=== PATIENT | female | born 1990 | race Two or more races ===

== ENCOUNTER → 2019-02-19 | Outpatient (CLI) | payer SELFPAY ==
--- NOTE | 2019-02-19 16:48 | RADIOLOGY REPORT (SQ) ---
EXAM DESCRIPTION: U/S [id number] TRNABD 1GES W/ODOP COMPLETED DATE/TIME: 02/19/2019 2:21 pm REASON FOR STUDY: ENCTR FOR SUPERVISION OF OTHER NORMAL , 1ST TRIMESTER (Z34.81) Z34.81 EN COUNTER FOR SUPRVSN OF NORMAL , FIRST TRIM COMPARISON: None. TECHNIQUE: Transabdominal static and realtime grayscale images acquired of the pelvis. Additional se lected spectral and color Doppler images recorded. All images stored on PACs. CG: Not available. CLINICAL DATES: 10 weeks 1 day LIMITATIONS: None. FINDINGS: FETUS: Single Living intrauterine . ULTRASOUND EGA: 11 weeks 1 day ULTRASOUND LAVERN: 09/09/2019 EFW: Not applicable less than 20 weeks. CRL: 4.3 cm. FHR: 168 beats per minute. SURVEY: No visualized anomalies. AMNIOTIC FLUID: Adequate amount. PLACENTA: Not yet developed due to early gestation. SUBCHORIONIC BLEED: Yes. SIZE OF BLEED: 1.8 cm. UTERUS: No masses. No anomalies. CERVICAL LENGTH: 3.2 cm. Closed. RIGHT ADNEXA: Normal ovary with normal vascular flow. No adnexal free fluid. No adnexal masses. LEFT ADNEXA: Normal ovary with normal vascular flow. No adnexal free fluid. No adnexal masses. FREE FLUID: None. OTHER: No other significant finding. IMPRESSION: LIVING INTRAUTERINE . EGA 11 weeks 1 day. Small subchronic hemorrhage. Trimester of : First trimester - 0 to 13 weeks. TECHNICAL DOCUMENTATION: JOB ID: [id number] [employer]- All Rights Reserved Reading location - IP/workstation name: [email or web address]
== END ==
LOC: RAD 13:28
PROVIDERS: ATTEND Nurse Practitioner Family
DX: Z34.81 Encounter for supervision of other normal pregnancy, first trimester (principal)
CPT/HCPCS: 76801

== ENCOUNTER 2019-04-10 14:02 | Emergency (ER) | payer MEDICAID ==
[2019-04-10] MEDS ORDERED: ACETAMINOPHEN 325 MG TABLET PO ONE (14:51)
--- NOTE | 2019-04-10 14:52 | ER Document Report ---
ED Medical Screen (RME) - General Mode of Arrival: Ambulatory Information source: Patient TRAVEL OUTSIDE OF THE U.S[place] IN LAST 30 DAYS: Yes - [place] <WARREN DELGADO - Last Filed: 04/10/19 14:51> <MARICHUY OJEDA P - Last Filed: 04/10/19 18:33> - General Chief Complaint: Abdominal Pain Stated Complaint: COUGH Time Seen by Provider: 04/10/19 14:45 Primary Care Provider: BRET BHATIA ARNP [Primary Care Provider] - Follow up as needed Notes: Patient presents with cough for the past 3 days with sore throat. Patient reports fever yesterday. Patient is currently 16 weeks and complains of lower abdominal pain that is worse with coughing. Patient denies any vomiting or diarrhea. Patient denies any urinary symptoms. I have greeted and performed a rapid initial assessment of this patient. A comprehensive ED assessment and evaluation of the patient, analysis of test results and completion of the medical decision making process will be conducted by additional ED providers. (WARREN DELGADO) - Related Data Allergies/Adverse Reactions: No Known Allergies Allergy (Verified 04/10/19 14:45) Review of Systems - Review of Systems Constitutional: No symptoms reported EENT: No symptoms reported Cardiovascular: No symptoms reported Respiratory: See HPI, Cough Gastrointestinal: Abdominal pain Genitourinary: No symptoms reported Female Genitourinary: No symptoms reported Musculoskeletal: No symptoms reported Skin: No symptoms reported Hematologic/Lymphatic: No symptoms reported Neurological/Psychological: No symptoms reported <MARICHUY OJEDA P - Last Filed: 04/10/19 18:33> Physical Exam - Respiratory Respiratory status: No respiratory distress Breath sounds: Nonproductive cough - Abdominal Inspection: Gravid female Tenderness: Tender - lower pelvic <WARREN DELGADO - Last Filed: 04/10/19 14:51> - Vital signs Interpretation: Normal - General General appearance: Appears well, Alert - HEENT Head: Normocephalic, Atraumatic Eyes: Normal Pupils: PERRL - Respiratory Respiratory status: No respiratory distress Chest status: Nontender Breath sounds: Normal Chest palpation: Normal - Cardiovascular Rhythm: Regular Heart sounds: Normal auscultation Murmur: No - Abdominal Inspection: Normal Distension: No distension Bowel sounds: Normal Tenderness: Nontender Organomegaly: No organomegaly - Back Back: Normal, Nontender - Extremities General upper extremity: Normal inspection, Nontender, Normal color, Normal ROM, Normal temperature General lower extremity: Normal inspection, Nontender, Normal color, Normal ROM, Normal temperature, Normal weight bearing. No: Carin's sign - Neurological Neuro grossly intact: Yes Cognition: Normal Orientation: AAOx4 Mellissa Coma Scale Eye Opening: Spontaneous [place] Coma Scale Verbal: Oriented [place] Coma Scale Motor: Obeys Commands [place] Coma Scale Total: 15 Speech: Normal Motor strength normal: LUE, RUE, LLE, RLE Sensory: Normal - Psychological Associated symptoms: Normal affect, Normal mood - Skin Skin Temperature: Warm Skin Moisture: Dry Skin Color: Normal <MARICHUY OJEDA P - Last Filed: 04/10/19 18:33> - Vital signs Vitals: Temp Pulse Resp BP Pulse Ox 98.5 F 87 20 94/59 L 98 04/10/19 14:30 04/10/19 14:30 04/10/19 14:30 04/10/19 14:30 04/10/19 14:30 Course - Vital Signs Vital signs: Temp Pulse Resp BP Pulse Ox 98.5 F 87 20 94/59 L 98 04/10/19 14:30 04/10/19 14:30 04/10/19 14:30 04/10/19 14:30 04/10/19 14:30 - Laboratory Laboratory results interpreted by me: 04/10/19 16:00 Urine Protein 30 H Urine Ketones 20 H Urine Urobilinogen 4.0 H Ur Leukocyte Esterase SMALL H Urine Ascorbic Acid 20 H Doctor's Discharge <WARREN DELGADO - Last Filed: 04/10/19 14:51> <MARICHUY OJEDA P - Last Filed: 04/10/19 18:33> - Discharge Referrals: BRET BHATIA ARNP [Primary Care Provider] - Follow up as needed
[2019-04-10] MEDS ORDERED: NORMAL SALINE 1000 ML 1,000 ML IV ONE (14:53)
--- NOTE | 2019-04-10 16:05 | RADIOLOGY REPORT (SQ) ---
EXAM DESCRIPTION: CHEST 2 VIEWS COMPLETED DATE/TIME: 04/10/2019 3:46 pm REASON FOR STUDY: cough, shield abd COMPARISON: None. EXAM PARAMETERS: NUMBER OF VIEWS: two views TECHNIQUE: PA and lateral views of the chest were obtained. RADIATION DOSE: NA LIMITATIONS: none FINDINGS: LUNGS AND PLEURA: No consolidation, pleural effusion or pneumothorax. MEDIASTINUM AND HILAR STRUCTURES: No mediastinal or hilar contour abnormality. HEART AND VASCULAR STRUCTURES: The cardiac silhouette and pulmonary vasculature are within normal taylor its. BONES: No acute findings. HARDWARE: None in the chest. OTHER: No other finding. IMPRESSION: No acute cardiopulmonary process. TECHNICAL DOCUMENTATION: JOB ID: [id number] [employer]- All Rights Reserved Reading location - IP/workstation name: [email or web address]
[2019-04-10 16:42] LABS: AMORPHOUS SEDIMENT,URINE TRACE /HPF; APPEARANCE,URINE SLIGHTLY-CLOUDY; BILIRUBIN,URINE NEGATIVE (NEGATIVE); COLOR,URINE YELLOW; GLUCOSE, URINE NEGATIVE (NEGATIVE); KETONES,URINE 20 mg/dL (NEGATIVE); LEUKOCYTE ESTERASE,URINE SMALL (NEGATIVE); NITRITE,URINE NEGATIVE (NEGATIVE); PROTEIN,URINE 30 mg/dL (NEGATIVE); URINE SPECIFIC GRAVITY 1.026
--- NOTE | 2019-04-10 16:53 | RADIOLOGY REPORT (SQ) ---
EXAM DESCRIPTION: U/S OB 14+ TRNABD 1GES W/O DOP COMPLETED DATE/TIME: 04/10/2019 4:37 pm REASON FOR STUDY: lower abd pain COMPARISON: 02/19/2019 TECHNIQUE: Static and Dynamic grayscale imaging performed of gravid uterus using transabdominal appr oach. Additional selected color Doppler and spectral images recorded. All stored on PACS. LIMITATIONS: None. FINDINGS: FETUSES SEEN:1 EGA: 18 weeks 1 day Calculated using BPD,FL,HC,AC documented on images. No discrepancy with clinical dates. LAVERN: 09/10/2019 EFW: 242+/-36 g. PERCENTILE: Not applicable. Fetus less than or equal to 20 weeks gestation. LVP: 3.8 x 4.4 cm. PLACENTA: Anterior. Marginal placenta previa at this time. GRADE: I PRESENTATION: Breech. HEART RATE: 150 beats per minute. anatomical survey was not performed. MATERNAL ADNEXA: Maternal ovaries not visualized. CERVICAL LENGTH: 4.1 cm. Closed. OTHER: No other significant finding. IMPRESSION: LIVING INTRAUTERINE . ESTIMATED GESTATIONAL AGE 18 weeks 1 day. Trimester of : Second trimester - 13 weeks 1 day to 27 weeks 6 days. TECHNICAL DOCUMENTATION: JOB ID: [id number] [employer]- All Rights Reserved Reading location - IP/workstation name: [email or web address]
[2019-04-10] MEDS ORDERED: ACETAMINOPHEN 325 MG TABLET ONE (17:45)
--- NOTE | 2019-04-10 18:39 | ER Document Report ---
ED General - General Chief Complaint: Abdominal Pain Stated Complaint: COUGH Time Seen by Provider: 04/10/19 14:45 Primary Care Provider: BRET BHATIA ARNP [Primary Care Provider] - Follow up as needed Mode of Arrival: Ambulatory TRAVEL OUTSIDE OF THE [place]. IN LAST 30 DAYS: Yes - [place] - HPI Patient complains to provider of: sick for 3 days Onset: Other Severity: Moderate Pain Level: 2 Context: 28 year old female arrives with cough and sore throat and abd pain for 3 days. Unsure about fever. No rash. No spotting or bleeding. No rash. No chest pain. Associated symptoms: Nonproductive cough, Hoarseness, Nausea Exacerbated by: Denies - Related Data Allergies/Adverse Reactions: No Known Allergies Allergy (Verified 04/10/19 14:45) Past Medical History - General Information source: Patient - Social History Smoking Status: Never Smoker Family History: Reviewed & Not Pertinent Patient has suicidal ideation: No Patient has homicidal ideation: No Review of Systems - Review of Systems Constitutional: No symptoms reported EENT: Nose congestion, Throat pain Cardiovascular: No symptoms reported Respiratory: See HPI, Cough Gastrointestinal: No symptoms reported Genitourinary: No symptoms reported Female Genitourinary: No symptoms reported Musculoskeletal: No symptoms reported Skin: No symptoms reported Hematologic/Lymphatic: No symptoms reported Neurological/Psychological: No symptoms reported Physical Exam - Vital signs Vitals: Temp Pulse Resp BP Pulse Ox 98.5 F 87 20 94/59 L 98 04/10/19 14:30 04/10/19 14:30 04/10/19 14:30 04/10/19 14:30 04/10/19 14:30 Interpretation: Normal - General General appearance: Appears well, Alert - HEENT Head: Normocephalic, Atraumatic Eyes: Normal Pupils: PERRL - Respiratory Respiratory status: No respiratory distress Chest status: Nontender Breath sounds: Normal Chest palpation: Normal - Cardiovascular Rhythm: Regular Heart sounds: Normal auscultation Murmur: No - Abdominal Inspection: Normal Distension: No distension Bowel sounds: Normal Tenderness: Nontender Organomegaly: No organomegaly - Back Back: Normal, Nontender - Extremities General upper extremity: Normal inspection, Nontender, Normal color, Normal ROM, Normal temperature General lower extremity: Normal inspection, Nontender, Normal color, Normal ROM, Normal temperature, Normal weight bearing. No: Carin's sign - Neurological Neuro grossly intact: Yes Cognition: Normal Orientation: AAOx4 Mellissa Coma Scale Eye Opening: Spontaneous Mellissa Coma Scale Verbal: Oriented [place] Coma Scale Motor: Obeys Commands Mellissa Coma Scale Total: 15 Speech: Normal Motor strength normal: LUE, RUE, LLE, RLE Sensory: Normal - Psychological Associated symptoms: Normal affect, Normal mood - Skin Skin Temperature: Warm Skin Moisture: Dry Skin Color: Normal Course - Re-evaluation Re-evalutation: 04/10/19 18:36 MDM 28 year old 2nd trimester is here with URI and ? flu. History limited a bit by Syriac speaking. Will cover flu as it is everywhere lately. She is nontoxic and results of studies here are reassuring. 04/10/19 20:50 I have been delayed here due to code taking precedence. - Vital Signs Vital signs: Temp Pulse Resp BP Pulse Ox 97.8 F 87 18 101/63 96 04/10/19 21:22 04/10/19 21:22 04/10/19 21:22 04/10/19 21:22 04/10/19 21:22 - Laboratory Laboratory results interpreted by me: 04/10/19 16:00 Urine Protein 30 H Urine Ketones 20 H Urine Urobilinogen 4.0 H Ur Leukocyte Esterase SMALL H Urine Ascorbic Acid 20 H Discharge - Discharge Clinical Impression: Acute bronchitis Qualifiers: Bronchitis organism: unspecified organism Qualified Code(s): J20.9 - Acute bronchitis, unspecified Condition: Good Disposition: HOME, SELF-CARE Additional Instructions: Rest, fluids, medicines as directed. See your OB doctor in follow up. Please return here for any problems or any concerns. Take tylenol (acetominophen) as needed for pain. Prescriptions: Cephalexin Monohydrate [Keflex 500 mg Capsule] 500 mg PO TID #30 capsule Oseltamivir Phosphate [Tamiflu 75 mg Capsule] 75 mg PO BID #10 capsule Referrals: BRET BHATIA ARNP [Primary Care Provider] - Follow up as needed
[2019-04-10 21:23] VITALS: BP 101/63
== END 2019-04-10 21:22 | disposition home or self-care (01) ==
LOC: ER 14:02
DX: O26.92 Pregnancy related conditions, unspecified, second trimester (principal); J20.9 Acute bronchitis, unspecified; R10.9 Unspecified abdominal pain; R50.9 Fever, unspecified; R11.0 Nausea; Z3A.16 16 weeks gestation of pregnancy
CPT/HCPCS: 99284; 96360; 87070; 87880; 81001; 71046; 76805; J7030

== ENCOUNTER → 2019-05-16 | Outpatient (CLI) | payer MEDICAID ==
--- NOTE | 2019-05-16 16:47 | RADIOLOGY REPORT (SQ) ---
EXAM DESCRIPTION: U/S OB 14+ TRNABD 1GES W/O DOP COMPLETED DATE/TIME: 05/16/2019 3:54 pm REASON FOR STUDY: ENCTR FOR SUPERVISION OF OTHER NORMAL , 2ND TRIMESTER (Z34.82) Z34.82 EN COUNTER FOR SUPRVSN OF NORMAL , SECOND TRI COMPARISON: 04/10/2019 TECHNIQUE: Static and Dynamic grayscale imaging performed of gravid uterus using transabdominal appr oach. Additional selected color Doppler and spectral images recorded. All stored on PACS. LIMITATIONS: None. FINDINGS: FETUSES SEEN:1 EGA: 23 weeks 3 days Calculated using BPD,FL,HC,AC documented on images. No discrepancy with clinica l dates. LAVERN: 09/09/2019 EFW: 601 grams PERCENTILE: 42 HERON: 18.7 PLACENTA: Anterior. Placenta previa. PRESENTATION: Breech. ANATOMY: HEART RATE: 145 beats per minute. FOUR CHAMBER HEART: Visualized. THREE VESSEL CORD: Yes. CORD INSERTION: Visualized. KIDNEYS AND BLADDER: Not well visualized. STOMACH: Visualized. Appears normal. SPINE: Not well visualized. BRAIN AND LATERAL VENTRICLES: Not well visualized. OTHER: No other significant finding. MATERNAL ADNEXA: Maternal ovaries not visualized. CERVICAL LENGTH: 5.6 cm. Closed. OTHER: No other significant finding. IMPRESSION: LIVING INTRAUTERINE . ESTIMATED GESTATIONAL AGE 23 weeks 3 days. Placenta previa. Trimester of : Second trimester - 13 weeks 1 day to 27 weeks 6 days. TECHNICAL DOCUMENTATION: JOB ID: [id number] [employer]- All Rights Reserved Reading location - IP/workstation name: [email or web address]
== END ==
LOC: RAD 14:28
PROVIDERS: ATTEND Midwife
DX: Z34.82 Encounter for supervision of other normal pregnancy, second trimester (principal)
CPT/HCPCS: 76805

== ENCOUNTER 2019-07-15 11:39 | Outpatient (CLI) | payer MEDICAID | END 2019-07-15 12:40 | disposition home or self-care (01) | LOC: LC 11:39 | PROVIDERS: ATTEND Obstetrics & Gynecology | DX: O36.8130 Decreased fetal movements, third trimester, not applicable or unspecified (principal); Z3A.31 31 weeks gestation of pregnancy ==

== ENCOUNTER 2019-09-02 13:38 | Outpatient (CLI) | payer MEDICAID ==
[2019-09-02 14:31] LABS: APPEARANCE,URINE CLOUDY; BILIRUBIN,URINE NEGATIVE (NEGATIVE); COLOR,URINE YELLOW; GLUCOSE, URINE NEGATIVE (NEGATIVE); KETONES,URINE NEGATIVE (NEGATIVE); LEUKOCYTE ESTERASE,URINE MODERATE (NEGATIVE); NITRITE,URINE NEGATIVE (NEGATIVE); PROTEIN,URINE 30 mg/dL (NEGATIVE); URINE SPECIFIC GRAVITY 1.017
[2019-09-02 14:47] LABS: URINE AMPHETAMINES SCREEN NEGATIVE; URINE BARBITURATES SCREEN NEGATIVE; URINE BENZODIAZEPINES SCREEN NEGATIVE; URINE COCAINE SCREEN NEGATIVE; URINE MARIJUANA (THC) SCREEN NEGATIVE; URINE METHADONE SCREEN NEGATIVE; URINE PHENCYCLIDINE SCREEN NEGATIVE
--- NOTE | 2019-09-02 15:25 | Non Stress Test Report ---
Non Stress Test Datetime Report Generated by CPN: 09/02/2019 15:25 DEMOGRAPHIC EGA NST: 38.0 INDICATION Indication for Study (NST) Other: IUP @ 38 wks, dehydration VITAL SIGNS Temperature - NST: 98.9 Pulse - NST: 76 RESP - NST: 16 NBPSYS NST: 102 NBPDIA NST: 57 MONITORING Monitor Explained: Monitor Explained; Test Explained; Patient Verbalized Understanding Time on Monitor: 09/02/2019 14:14 Time off Monitor: 09/02/2019 15:14 NST Duration: 60 NST INTERVENTIONS NST Interventions: PO Hydration; Reposition Patient Physician Notified NST: J. Gillette, CNM BABY A: [id number] BABY A Movement : Present Contraction Frequency : irregular FHR Baseline : 130 Accelerations : 15X15 Variability : Moderate 6-25bpm NST Review: Meets Criteria for Reactive NST NST Review and Verified By : Caroline Morrow RNC NST Results: Reactive NST REPORT Report Trigger: Send Report
== END 2019-09-02 15:30 | disposition home or self-care (01) ==
LOC: LC 13:38
PROVIDERS: ATTEND Obstetrics & Gynecology Gynecology
DX: O47.1 False labor at or after 37 completed weeks of gestation (principal); O99.283 Endocrine, nutritional and metabolic diseases complicating pregnancy, third trimester; E86.0 Dehydration; Z3A.38 38 weeks gestation of pregnancy
CPT/HCPCS: 59025; 80307; 81005

== ENCOUNTER 2019-09-10 09:04 | Outpatient (CLI) | payer MEDICAID ==
[2019-09-10 09:58] LABS: APPEARANCE,URINE SLIGHTLY-CLOUDY; BILIRUBIN,URINE NEGATIVE (NEGATIVE); COLOR,URINE YELLOW; GLUCOSE, URINE NEGATIVE (NEGATIVE); KETONES,URINE NEGATIVE (NEGATIVE); LEUKOCYTE ESTERASE,URINE SMALL (NEGATIVE); NITRITE,URINE NEGATIVE (NEGATIVE); PROTEIN,URINE NEGATIVE (NEGATIVE); URINE SPECIFIC GRAVITY 1.013; UROBILINOGEN,URINE NEGATIVE mg/dL (<2.0)
[2019-09-10 10:19] LABS: URINE AMPHETAMINES SCREEN NEGATIVE; URINE BARBITURATES SCREEN NEGATIVE; URINE BENZODIAZEPINES SCREEN NEGATIVE; URINE COCAINE SCREEN NEGATIVE; URINE MARIJUANA (THC) SCREEN NEGATIVE; URINE METHADONE SCREEN NEGATIVE; URINE PHENCYCLIDINE SCREEN NEGATIVE
--- NOTE | 2019-09-10 14:10 | Non Stress Test Report ---
Non Stress Test Datetime Report Generated by CPN: 09/10/2019 14:10 DEMOGRAPHIC EGA NST: 39.1 INDICATION Indication for Study (NST) Other: 39 wk iup intact membranes not in laobr MONITORING Monitor Explained: Monitor Explained; Test Explained; Patient Verbalized Understanding Time on Monitor: 09/10/2019 11:38 Time off Monitor: 09/10/2019 11:58 NST Duration: 20 NST INTERVENTIONS Physician Notified NST: Dr Alcantar/P Marquez CNM BABY A: [id number] BABY A Movement : Present Contraction Frequency : 3-5 FHR Baseline : 130 Accelerations : Prolonged Decelerations : None Variability : Moderate 6-25bpm NST Review: Meets Criteria for Reactive NST NST Review and Verified By : AFeuston, RN NST Results: Reactive NST REPORT Report Trigger: Send Report
== END 2019-09-10 12:17 | disposition home or self-care (01) ==
LOC: LC 09:04
PROVIDERS: ATTEND Student in an Organized Health Care Education/Training Program
DX: Z34.93 Encounter for supervision of normal pregnancy, unspecified, third trimester (principal)
CPT/HCPCS: 80307; 81005; 84112

== ENCOUNTER 2019-09-10 19:26 | Outpatient (CLI) | payer MEDICAID ==
[2019-09-10 20:01] LABS: APPEARANCE,URINE SLIGHTLY-CLOUDY; BILIRUBIN,URINE NEGATIVE (NEGATIVE); COLOR,URINE YELLOW; GLUCOSE, URINE 50 mg/dL (NEGATIVE); KETONES,URINE NEGATIVE (NEGATIVE); LEUKOCYTE ESTERASE,URINE NEGATIVE (NEGATIVE); NITRITE,URINE NEGATIVE (NEGATIVE); PROTEIN,URINE 30 mg/dL (NEGATIVE)
[2019-09-10 20:22] LABS: URINE AMPHETAMINES SCREEN NEGATIVE; URINE BARBITURATES SCREEN NEGATIVE; URINE BENZODIAZEPINES SCREEN NEGATIVE; URINE COCAINE SCREEN NEGATIVE; URINE MARIJUANA (THC) SCREEN NEGATIVE; URINE METHADONE SCREEN NEGATIVE; URINE PHENCYCLIDINE SCREEN NEGATIVE
--- NOTE | 2019-09-10 20:24 | Non Stress Test Report ---
Non Stress Test Datetime Report Generated by CPN: 09/10/2019 20:24 DEMOGRAPHIC EGA NST: 39.1 INDICATION Indication for Study (NST) Other: LC - Contractions MONITORING Monitor Explained: Monitor Explained; Test Explained; Patient Verbalized Understanding Time on Monitor: 09/10/2019 19:37 Time off Monitor: 09/10/2019 20:20 NST Duration: 43 NST INTERVENTIONS NST Interventions: PO Hydration Physician Notified NST: Dr. Alcantar BABY A: [id number] BABY A Movement : Present Contraction Frequency : Irregular FHR Baseline : 120 Accelerations : 15X15 Decelerations : None Variability : Moderate 6-25bpm NST Review: Meets Criteria for Reactive NST NST Review and Verified By : Anthony Shay RN NST Results: Reactive NST REPORT Report Trigger: Send Report
== END 2019-09-10 20:58 | disposition home or self-care (01) ==
LOC: LC 19:26
PROVIDERS: ATTEND Student in an Organized Health Care Education/Training Program
DX: O47.1 False labor at or after 37 completed weeks of gestation (principal); Z3A.39 39 weeks gestation of pregnancy
CPT/HCPCS: 80307; 81005

== ENCOUNTER 2019-09-11 01:42 | Inpatient (IN) | payer MEDICAID ==
[2019-09-11] MEDS ORDERED: OXYTOCIN 10 UNIT/ML VIAL ONE (01:57)
[2019-09-11] MEDS ORDERED: MISOPROSTOL 0.2 MG TABLET ONE (01:57)
[2019-09-11] MEDS ORDERED: LIDOCAINE 1% INJ-PF (10 MG/ML) 30 ML SDV ONE (01:57)
[2019-09-11] MEDS ORDERED: OXYTOCIN/0.9 % SODIUM CHLORIDE 30 UNIT/500 ML RTUINJ ONE (01:58)
[2019-09-11] MEDS: RINGERS SOLUTION,LACTATED 1,000 ML IV PRN ×3 (02:08→05:37)
[2019-09-11] MEDS ORDERED: RINGERS SOLUTION,LACTATED 1,000 ML IV ONE (02:30)
[2019-09-11] MEDS ORDERED: FENTANYL/BUPIVACAINE/NS/PF 300 MCG/150 ML RTUINJ EPI ONE (02:34)
[2019-09-11] MEDS ORDERED: BUPIVACAINE HCL 0.25 % INJ/PF (2.5 MG/1 ML) 30 ML VIAL ONE (02:34)
[2019-09-11] MEDS ORDERED: EPHEDRINE SULFATE INJ 50 MG/1 ML AMPULE ONE (02:34)
[2019-09-11 02:41] LABS: ABSOLUTE BASOPHILS # (AUTO) 0.1 10^3/uL (0.0-0.2); ABSOLUTE LYMPHOCYTES (AUTO) 1.3 10^3/uL (0.5-4.7); ABSOLUTE MONOCYTES (AUTO) 0.5 10^3/uL (0.1-1.4); ABSOLUTE NEUT (AUTO) 10.1 10^3/uL (1.7-8.2); BASOPHILS % (AUTO) 0.5 % (0-2); HEMATOCRIT 33.7 % (36.0-47.0); HEMOGLOBIN 11.4 g/dL (12.0-15.5); LYMPHOCYTES % (AUTO) 10.9 % (13-45); MEAN CORPUSCULAR HGB CONC 33.8 g/dL (32.0-36.0); MEAN CORPUSCULAR VOLUME 89 fl (80-97); MONOCYTES % (AUTO) 4.5 % (3-13); PLATELET COUNT 133 10^3/uL (150-450); RED CELL DISTRIBUTION WIDTH 13.3 % (11.5-14.0); SEGMENTED NEUTROPHILS % (AUTO) 84.1 % (42-78); TOTAL CELLS COUNTED % (AUTO) 100 %
--- NOTE | 2019-09-11 03:51 | Admission Physical ---
Datetime Report Generated by CPN: 09/11/2019 03:51 CURRENT ADMISSION Chief Complaint: Uterine Contractions Indication for Induction: Not Applicable Admit Impression : Term, Intrauterine Admit Plan: Admit to Unit; Initiate Labor Protocol ALLERGIES Medication Allergies: No Medication Allergies: No Known Allergies (09/10/2019) Latex: No Latex Allergies OBSTETRICAL HISTORY EDC: 09/16/2019 00:00 : 2 Para: 1 Term: 1 : 0 SAB: 0 IAB: 0 Ectopic: 0 Livin Cesareans: 0 VBACs: 0 Multiple Births: 0 Gestational Diabetes: No Rh Sensitization: No Incompetent Cervix: No MARQUES: No Infertility: No ART Treatment: No Uterine Anomaly: No IUGR: No Hx Previous C/S: No Macrosomia: No Hx Loss/Stillborn: No PIH: No Hx : No Placenta Previa/Abruption: No Depression/PP Depression: No PTL/PROM: No Post Hemorrhage: No Current Procedures: Ultrasound Obstetrical History Comments: G1-Vaginal, full term, boy-05/14/2009 G2-Current SEE RECORDS Alcohol: No Marijuana : No Cocaine: No Other Illicit Drugs: No Cigarettes: Never Smoker. 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 Surgery: No Heart Disease: No Hosp/Surgery: No Autoimmune Disorder: No Anesthetic Complications: No Kidney Disease: No Abnormal Pap Smear: No Neuro/Epilepsy: No Psychiatric Disorders: No Other Medical Diseases: No Hepatitis/Liver Disease: No Significant Family History: No Varicosities/Phlebitis: No Trauma/Violence : No Thyroid Dysfunction: No INFECTIOUS HISTORY Gonorrhea: No Genital Herpes: No Chlamydia: No Tuberculosis: No Syphilis: No Hepatitis: No HIV/AIDS Exposure: No Rash or Viral Illness: No HPV: No PHYSICAL EXAM General: Normal HEENT: Normal Neurologic: Normal Thyroid: Deferred Heart: Normal Lungs: Normal Breast: Deferred Back: Normal Abdomen: Normal Genitourinary Exam: Normal Extremities: Normal DTRs: Normal Pelvic Type: Adequate Vital Signs: Reviewed VAGINAL EXAM Dilatation: 5 Effacement: 80 Station: -2 Contraction Comments: q 2-3 MEMBRANES Membranes: Intact FETUS A EGA: 39.2 Monitoring: External US FHR- Baseline: 135 Variability: Moderate 6-25bpm Accelerations: 15X15 Decelerations: None FHR Category: Category I Presentation: Vertex Admit Comment: 28yo at 39+2ega presents for regular contractions and noted to be in active labor. Pelvis procen to 7#8oz. Elevated 1 hr - 3 hr GTT wnl. POly - resolved. Admit to labor and delivery. EPidural upon patient request. Anticipate . GBS negative. PLANS FOR LABOR AND DELIVERY Labor and Delivery: None Pain Management: Epidural Feeding Preference: Both Benefit of Breast Feed Discussed: Yes Circumcision: No INFORMED CONSENT Informed Consent Obtained: Vaginal Delivery; Risks, Benefits and Alternatives Discussed Signature: with User ID: [email or web address]
[2019-09-11] MEDS ORDERED: PSEUDOEPHEDRINE HCL 30 MG TABLET PO PRN (06:51)
[2019-09-11] MEDS ORDERED: DIBUCAINE 1% OINTMENT 28 GM TP PRN (06:51)
[2019-09-11] MEDS ORDERED: ZOLPIDEM TARTRATE 5 MG TABLET PO PRN (06:51)
[2019-09-11] MEDS ORDERED: PROMETHAZINE HCL INJ 25 MG/1 ML VIAL IV PRN (06:51)
[2019-09-11] MEDS ORDERED: MEASLES,MUMPS&RUBELLA VACC/PF 0.5 ML VIAL SUBCUT PRN (06:51)
[2019-09-11] MEDS ORDERED: MAGNESIUM HYDROXIDE SUSP 30 ML UDCUP PO PRN (06:51)
[2019-09-11] MEDS ORDERED: DIPHENHYDRAMINE HCL 25 MG CAPSULE PO PRN (06:51)
[2019-09-11] MEDS ORDERED: NA PHOS,M-B/NA PHOS,DI-BA (ADULT) 133 ML ENEMA PR PRN (06:51)
[2019-09-11] MEDS ORDERED: GLYCERIN/WITCH HAZEL LEAF 1 EACH MED..WIPE TP PRN (06:51)
[2019-09-11] MEDS ORDERED: BENZOCAINE/MENTHOL AEROSOL SPRAY 56 ML TOP PRN (06:51)
[2019-09-11] MEDS ORDERED: PROMETHAZINE HCL 25 MG SUPP.RECT PR PRN (06:51)
[2019-09-11] MEDS ORDERED: ACETAMINOPHEN 325 MG TABLET PO PRN (06:51)
[2019-09-11] MEDS ORDERED: PROMETHAZINE HCL 25 MG TABLET PO PRN (06:51)
[2019-09-11] MEDS ORDERED: OXYTOCIN/0.9 % SODIUM CHLORIDE 30 UNIT/500 ML RTUINJ IV PRN (06:51)
[2019-09-11] MEDS ORDERED: DIPH/PERTUSS(ACELL)/TETANUS VAC/PF 0.5 ML SYR (>=10YO) IM PRN (06:51)
[2019-09-11] MEDS ORDERED: ACETAMINOPHEN WITH CODEINE #3 TABLET PO PRN (06:51)
--- NOTE | 2019-09-11 08:18 | Delivery Summary ---
Del Sum A-C Datetime Report Generated by CPN: 09/11/2019 08:18 DELIVERY PERSONNEL DELIVERY PERSONNEL: [id number] Delivery Doctor:: Kerri Alcantar MD PUBLIC HEALTH CLINICAL NURSE SPECIALIST:: Merlin Layton CRNA Labor and Delivery Nurse:: Shamika Alcaraz RNmanager revenue Nurse:: SHU Ascencio Cover Cutter Machine/DIGITAL ASSOCIATE: Ryanne Shun, NURSING ASSISTANT MATERNAL INFORMATION Delivery Anesthesia: Epidural Medications After Delivery: Pitocin 30 Units in 500ml NS/D5W Estimated Blood Loss (ml): 200 Delivery QBL: 200 Maternal Complications: None Provider Comments: VMI delivered in NATALIYA presentation. No nuchal cord. SHoulders and body delivered without difficulty. Cord doubly clamped and cut. Infant to maternal abdomen for NRP. Placenta delivered intact spontaneously. FF at U with pitocin. 2nd degree perineal laceration repaired with good hemostasis. Mother and baby stable upon provider leaving the room. LABOR SUMMARY EDC: 09/16/2019 00:00 No. Babies in Womb: 1 Attempted: No Labor Anesthesia: Epidural LABOR INFORMATION Reason for Induction: Not Applicable Onset of Labor: 09/11/2019 01:55 Complete Dilatation: 09/11/2019 05:17 Oxytocin: Augmentation Group B Beta Strep: neg Antibiotics # of Doses: 0 Antibiotics Time of Last Dose: 0 Name of Antibiotic Given: 0 Steroids Given: None Reason Steroids Not Administered: Not Applicable MEMBRANES Membranes Rupture Method: Artificial Rupture of Membranes: 09/11/2019 04:02 Length of Rupture (hr): 2.48 Amniotic Fluid Color: Clear Amniotic Fluid Amount: Small Amniotic Fluid Odor: Normal STAGES OF LABOR Stage 1 hr: 3 Stage 1 min: 22 Stage 2 hr: 1 Stage 2 min: 14 Stage 3 hr: 0 Stage 3 min: 3 Total Time in Labor hr: 4 Total Time in Labor min: 39 VAGINAL DELIVERY Episiotomy: None Laceration #1: Perineal Laceration Extension #1: Second Degree Laceration Repair: Yes Laceration Repair Note: 2nd degree perineal laceration repaired in usual fashion. Sponge Count Correct: Yes Sharps Count Correct: Yes CSECTION DELIVERY Primary Indication: N/A Secondary Indication: N/A CSection Incidence: N/A Labor: N/A Elective: N/A CSection Incision: N/A BABY A INFORMATION Infant Delivery Date/Time: 09/11/2019 06:31 Method of Delivery: Vaginal Nurse Controlled Delivery: No Born in Route : No : N/A Forceps: N/A Vacuum Extraction: N/A Shoulder Dystocia : No PRESENTATION/POSITION BABY A Presentation: Cephalic Cephalic Presentation: Vertex Vertex Position: Left Occipital Anterior Breech Presentation: N/A PLACENTA INFORMATION BABY A Placenta Delivery Time : 09/11/2019 06:34 Placenta Method of Delivery: Spontaneous Placenta Status: Delivered SCORES BABY A Heart Rate 1 min: >100 bpm Resp Effort 1 min: Good Cry Reflex Irritability 1 min: Cough or Sneeze or Pulls Away Muscle Tone 1 min: Active Motion Color 1 min: Body [place], Extremities Blue Resuscitation Effort 1 min: Tactile Stimulation SCORE 1 MIN: 9 Heart Rate 5 min: >100 bpm Resp Effort 5 min: Good Cry Reflex Irritability 5 min: Cough or Sneeze or Pulls Away Muscle Tone 5 min: Active Motion Color 5 min: Completely [place] Resuscitation Effort 5 min: Tactile Stimulation SCORE 5 MIN: 10 INFORMATION BABY A Gestational Age at Delivery: 39.2 Gestational Status: Full Term- 39- 40.6 Weeks Outcome : Liveborn Infant Condition : Stable Sex: Male IDENTIFICATION BABY A Verification Date/Time: 09/11/2019 06:44 ID Band Number: [id number] Mother's Name Verified: Yes RN Verifying Infant: , RN Additional Verifying Personnel: SMarilynn, NURSING ASSISTANT WEIGHT/LENGTH BABY A Birthweight (gm): 3810 Infant Weight (lb): 8 Infant Weight (oz): 6 Length (in): 20.87 Length (cm): 53.01 CORD INFORMATION BABY A No. Cord Vessels: 3 Nuchal Cord : N/A Cord Blood Taken: Yes-For Storage (Mom's Blood type +) Infant Suction: None ASSESSMENT BABY A Complications: None Physical Findings at Delivery: Within Normal Limits Infant Respirations: Appears Normal Skin to Skin: Yes Skin to Skin Time (min): 45 Entry Level Staff Accountant/ALS Called : No Infant Care By: D Bellavance RN Transferred To: Remains with Mother BABY B INFORMATION : N/A SIGNATURES Signature: with User ID: [email or web address]
[2019-09-11] MEDS ORDERED: SENNOSIDES/DOCUSATE 8.6-50 MG 1 EACH TABLET ONE (10:30)
[2019-09-11] MEDS ORDERED: PRENATAL VITAMIN W DHA CAPSULE PO ONE (10:30)
[2019-09-11] MEDS ORDERED: DOCUSATE SODIUM 100 MG CAPSULE ONE (10:31)
[2019-09-11] MEDS ORDERED: FAMOTIDINE 20 MG TABLET ONE (10:31)
[2019-09-11] MEDS ORDERED: FERROUS SULFATE 325 MG TABLET PO ONE (10:31)
[2019-09-11] MEDS: FAMOTIDINE 20 MG TABLET PO SCH ×2 (10:35→22:11)
[2019-09-11] MEDS: DOCUSATE SODIUM 100 MG CAPSULE PO SCH ×2 (10:35→18:16)
[2019-09-11] MEDS: FERROUS SULFATE 325 MG TABLET PO SCH ×2 (10:35→18:16)
[2019-09-11] MEDS: PRENATAL VITAMIN W DHA CAPSULE PO SCH (10:35)
[2019-09-11] MEDS: SENNOSIDES/DOCUSATE 8.6-50 MG 1 EACH TABLET PO SCH (10:35)
[2019-09-11] MEDS ORDERED: IBUPROFEN 800 MG TABLET ONE (13:08)
[2019-09-11] MEDS: IBUPROFEN 800 MG TABLET PO SCH ×2 (13:11→22:11)
[2019-09-11] MEDS: ACETAMINOPHEN WITH CODEINE #3 TABLET PO PRN (20:48)
[2019-09-12] MEDS: IBUPROFEN 800 MG TABLET PO SCH ×3 (05:28→21:11)
[2019-09-12 07:12] LABS: HEMATOCRIT 29.6 % (36.0-47.0); MEAN CORPUSCULAR HEMOGLOBIN 30.4 pg (27.0-33.4); MEAN CORPUSCULAR HGB CONC 33.7 g/dL (32.0-36.0); MEAN CORPUSCULAR VOLUME 90 fl (80-97); PLATELET COUNT 131 10^3/uL (150-450); RED BLOOD COUNT 3.29 10^6/uL (3.72-5.28); RED CELL DISTRIBUTION WIDTH 13.6 % (11.5-14.0); WHITE BLOOD COUNT 10.3 10^3/uL (4.0-10.5)
--- NOTE | 2019-09-12 09:48 | PDOC PROGRESS REPORT ---
Subjective-OB Progress Note for:: 09/12/19 Subjective: Doing well, no c/o, hsb at BS, will go home in AM Physical Exam (OB) Vital Signs: Temp Pulse Resp BP Pulse Ox 98.0 F 78 16 92/51 L 96 09/12/19 07:42 09/12/19 07:42 09/12/19 07:42 09/12/19 07:42 09/12/19 07:42 Intake & Output 09/11/19 09/12/19 09/13/19 06:59 06:59 06:59 Intake Total 431 Balance 431 Weight 82 kg - Lochia Lochia Amount: Small 10-25 ml Lochia Color: Rubra/Red - Abdomen Description: Soft Hernia Present: No Fundal Description: Firm, Midline Fundal Height: u/u - u/2 Objective-Diagnostic Laboratory: 09/12/19 06:56 09/12/19 06:56 WBC 10.3 RBC 3.29 L Hgb 10.0 L Hct 29.6 L MCV 90 MCH 30.4 MCHC 33.7 RDW 13.6 Plt Count 131 L Assessment and Plan(PN) - Assessment and Plan (1) Obstetrical laceration, second degree Is this a current diagnosis for this admission?: Yes (2) Vaginal delivery Is this a current diagnosis for this admission?: Yes (3) Active labor at term Is this a current diagnosis for this admission?: Yes - Time Spent with Patient Time with patient: Less than 15 minutes Medications reviewed and adjusted accordingly: Yes - Disposition Anticipated Discharge: Home Within: within 24 hours
[2019-09-12] MEDS: PRENATAL VITAMIN W DHA CAPSULE PO SCH (10:15)
[2019-09-12] MEDS: FERROUS SULFATE 325 MG TABLET PO SCH ×2 (10:15→18:51)
[2019-09-12] MEDS: FAMOTIDINE 20 MG TABLET PO SCH ×2 (10:15→21:11)
[2019-09-12] MEDS: DOCUSATE SODIUM 100 MG CAPSULE PO SCH ×2 (10:15→18:51)
[2019-09-12] MEDS: SENNOSIDES/DOCUSATE 8.6-50 MG 1 EACH TABLET PO SCH (10:15)
[2019-09-12] MEDS: ACETAMINOPHEN WITH CODEINE #3 TABLET PO PRN (10:48)
[2019-09-13] MEDS: IBUPROFEN 800 MG TABLET PO SCH ×2 (05:45→13:35)
[2019-09-13] MEDS: FERROUS SULFATE 325 MG TABLET PO SCH (10:25)
[2019-09-13] MEDS: DOCUSATE SODIUM 100 MG CAPSULE PO SCH (10:25)
[2019-09-13] MEDS: FAMOTIDINE 20 MG TABLET PO SCH (10:25)
[2019-09-13] MEDS: SENNOSIDES/DOCUSATE 8.6-50 MG 1 EACH TABLET PO SCH (10:25)
[2019-09-13] MEDS: PRENATAL VITAMIN W DHA CAPSULE PO SCH (10:26)
--- NOTE | 2019-09-13 12:20 | PDOC DISCHARGE SUMMARY ---
Impression - Admit/DC Date/PCP Admission Date/Primary Care Provider: 09/11/19 01:56 PRINCE KITCHEN MD Discharge Date: 09/13/19 - Discharge Diagnosis (1) Active labor at term Is this a current diagnosis for this admission?: Yes (2) Obstetrical laceration, second degree Is this a current diagnosis for this admission?: Yes (3) Vaginal delivery Is this a current diagnosis for this admission?: Yes - Additional Information Discharge Diet: Regular Discharge Activity: Balance Activity w/Rest, Pelvic Rest Referrals: PRINCE KITCHEN MD [Primary Care Provider] - Prescriptions: Ibuprofen [Motrin 800 mg Tablet] 800 mg PO Q8HP PRN #90 tablet PRN Reason: Home Medications: Vits96/Iron Fum/Folic [ Tablet] 1 each PO DAILY 09/02/19 Ibuprofen [Motrin 800 mg Tablet] 800 mg PO Q8HP PRN #90 tablet 09/13/19 Results Laboratory Results: WBC 10.3 10^3/uL (4.0-10.5) 09/12/19 06:56 RBC 3.29 10^6/uL (3.72-5.28) L 09/12/19 06:56 Hgb 10.0 g/dL (12.0-15.5) L 09/12/19 06:56 Hct 29.6 % (36.0-47.0) L 09/12/19 06:56 MCV 90 fl (80-97) 09/12/19 06:56 MCH 30.4 pg (27.0-33.4) 09/12/19 06:56 MCHC 33.7 g/dL (32.0-36.0) 09/12/19 06:56 RDW 13.6 % (11.5-14.0) 09/12/19 06:56 Plt Count 131 10^3/uL (150-450) L 09/12/19 06:56 Lymph % (Auto) 10.9 % (13-45) L 09/11/19 02:23 Roberts % (Auto) 4.5 % (3-13) 09/11/19 02:23 Eos % (Auto) 0.0 % (0-6) 09/11/19 02:23 Baso % (Auto) 0.5 % (0-2) 09/11/19 02:23 Absolute Neuts (auto) 10.1 10^3/uL (1.7-8.2) H 09/11/19 02:23 Absolute Lymphs (auto) 1.3 10^3/uL (0.5-4.7) 09/11/19 02:23 Absolute Monos (auto) 0.5 10^3/uL (0.1-1.4) 09/11/19 02:23 Absolute Eos (auto) 0.0 10^3/uL (0.0-0.6) 09/11/19 02:23 Absolute Basos (auto) 0.1 10^3/uL (0.0-0.2) 09/11/19 02:23 Seg Neutrophils % 84.1 % (42-78) H 09/11/19 02:23 RPR NONREACTIVE (NONREACTIVE) 09/11/19 02:23 Blood Type A POSITIVE 09/11/19 02:23 Antibody Screen NEGATIVE 09/11/19 02:23 Plan Plan of Treatment: follow up in 4 weeks at [facility] for post check
[2019-09-13 12:51] VITALS: BP 115/54
== END 2019-09-13 13:36 | disposition home or self-care (01) | DRG 807 ==
LOC: LC 01:42 → LR 01:56 → 2S 16:54
PROVIDERS: ADMIT Student in an Organized Health Care Education/Training Program; ATTEND Student in an Organized Health Care Education/Training Program
PROC: 10E0XZZ Delivery of Products of Conception, External Approach (ICD-10-PCS; principal; 2019-09-11)
PROC: 0KQM0ZZ Repair Perineum Muscle, Open Approach (ICD-10-PCS; 2019-09-11)
DX: O70.1 Second degree perineal laceration during delivery (principal); Z37.0 Single live birth; Z3A.39 39 weeks gestation of pregnancy
CPT/HCPCS: 1967; 36415; 85025; 85027; 86592; 86850; 86900; 86901; 94760; J2590; J3010; J3490